=== PATIENT | female | born 1995 | race Caucasian/White ===

== ENCOUNTER 2016-11-01 15:01 | Emergency (ER) | payer OTHER ==
[~2016-11-01] VITALS: Ht 175.3 cm; Wt 132.7 kg
[2016-11-01 15:13] VITALS: TEMP 36.7; Ht 175.3 cm; Wt 132.7 kg
[2016-11-01] MEDS ORDERED: ONDANSETRON INJ 2 MG/ML 2 ML VIAL IV STA (16:03)
[2016-11-01] MEDS ORDERED: OPTIRAY 320 IV PRN (16:15)
[2016-11-01 16:30] LABS: URINE APPEARANCE CLOUDY (CLEAR); URINE BILIRUBIN NEG (NEG); URINE COLOR YELLOW; URINE EPITHELIAL CELL AUTO >30 /lpf (0-5); URINE NITRITE NEG (NEG); URINE SPECIFIC GRAVITY 1.022 (1.000-1.030); UROBILINOGEN NEG (NEG)
[2016-11-01 16:42] LABS: BASO % 0.3 %; BASO ABS # 0.02 K/uL (0-0.2); COMPLETE YES; EOS % 1.4 %; HEMATOCRIT 41.5 % (37-47); IG% 0.1 %; LYMPH % 24.5 %; LYMPH ABS # 1.86 K/uL (1.2-3.4); MEAN CELL VOLUME 86.1 fL (80-100); MEAN CORPUSCULAR HEMOGLOBIN 30.1 pg (25-34); MEAN CORPUSCULAR HGB CONC 34.9 g/dl (32-36); MEAN PLATELET VOLUME 9.3 fL (7.4-10.4); MONO % 5.5 %; NEUT % 68.2 %; PLATELET COUNT 233 K/uL (130-400); RED BLOOD COUNT 4.82 M/uL (4.2-5.4)
[2016-11-01 16:45] LABS: MANUAL MICROSCOPIC REQUIRED? NO; REVIEW REQ? YES
[2016-11-01 17:01] LABS: ALT/SGPT 34 U/L (12-78); BLOOD UREA NITROGEN 9 mg/dl (7-18); BUN/CREATININE RATIO 11.2 (10-20); CALCIUM 8.8 mg/dl (8.5-10.1); CARBON DIOXIDE 25 mmol/L (21-32); CHLORIDE 106 mmol/L (98-107); CREATININE 0.78 mg/dl (0.60-1.20); GLUCOSE 81 mg/dl (70-99); POTASSIUM 3.7 mmol/L (3.5-5.1); SODIUM 142 mmol/L (136-145)
[2016-11-01 17:04] LABS: ALKALINE PHOSPHATASE 78 U/L (45-117); AST/SGOT 18 U/L (15-37)
[2016-11-01] MEDS ORDERED: CETI10TA84 PO (17:08)
[2016-11-01] MEDS ORDERED: BIOT1CAP8 PO (17:08)
[2016-11-01] MEDS ORDERED: FERR324T PO (17:20)
[2016-11-01] MEDS ORDERED: MAGN250T3 PO (17:20)
[2016-11-01] MEDS ORDERED: CYAN100020 PO (17:20)
[2016-11-01] MEDS ORDERED: CHOL100027 PO (17:20)
[2016-11-01] MEDS ORDERED: ASCO1CAP3 PO (17:20)
[2016-11-01] MEDS ORDERED: POTA75TA PO (17:20)
--- NOTE | 2016-11-01 19:07 | DIAGNOSTIC IMAGING REPORT ---
ABDOMEN AND PELVIS CT WITH IV AND ORAL CONTRAST CT DOSE: 1540.06 mGy.cm HISTORY: Right-sided abdominal pain. Assess for appendicitis. TECHNIQUE: Multiaxial CT images of the abdomen and pelvis were performed following the use of intravenous and oral contrast. COMPARISON STUDY: None. FINDINGS: The lung bases are clear. The liver, spleen, gallbladder, pancreas, kidneys, and adrenal glands are within normal limits. No bowel wall thickening or obstruction. The pelvic organs are unremarkable. No suspicious lytic or blastic osseous lesions. Normal appendix. A 1.5 cm right ovarian cyst. This is considered to be within the range of normal limits. A few small sclerotic foci within the sacrum likely represent bone islands. There is a right L4 pars defect. IMPRESSION: 1. Normal appendix. 2. No bowel wall thickening or obstruction. Electronically signed by: Ameya Yi M.D. 11/01/2016 7:05 PM Dictated Date/Time: 11/01/2016 6:57 PM
[2016-11-01 19:39] VITALS: BP 135/73; PULSE 85; O2SAT 100
--- NOTE | 2016-11-01 21:00 | EMERGENCY ROOM VISIT NOTE ---
History Report prepared by Ray: Opal Armas Under the Supervision of: Dr. Hang Lomas M.D. First contact with patient: 15:53 Chief Complaint: ABDOMINAL PAIN Stated Complaint: BLOOD IN STOOL,PAIN ON R SIDE OF STOMACH Nursing Triage Summary: blood in stool since bright red, blood only with bm pt having less vm then normal denies hemmorrhoids History of Present Illness The patient is a 21 year old female who presents to the Emergency Room with complaints of waxing and waning right sided abdominal pain that began 3 days ago. The pain radiates through her lower abdomen. She describes it as dull. She also complains of 2 episodes of loose stool. She states that there was bright red blood in her stool. She does not have pain with defecation. No personal history of hemorrhoids. There is no family history of inflammatory bowel disease. Her father was recently diagnosed with colon cancer. Denies fevers, vomiting, watery diarrhea, urinary symptoms, abnormal vaginal discharge or bleeding, or other complaints. The patient has not been sexually active in about 9 months. Denies recent antibiotic use or foreign travel. She has not been around anyone with diarrhea. Source of History: patient Onset: 3 days ago Position: abdomen (right side) Quality: dull Timing: waxes/wanes Associated Symptoms: No fevers, No urinary symptoms, No vomiting Note: Other symptoms: loose stool containing bright red blood Review of Systems See HPI for pertinent positives & negatives. A total of 10 systems reviewed and were otherwise negative. Past Medical & Surgical Medical Problems: (1) No Known Active Medical Problems Family History Cancer Social History Smoking Status: Never Smoker Housing Status: lives with roommate Occupation Status: [employer] Current/Historical Medications Scheduled Ascorbic Acid (Vitamin C), 500 MG PO 2XWK Biotin (Biotin), 1 MG PO DAILY Cetirizine (Zyrtec), 10 MG PO DAILY Cholecalciferol (Vitamin D 1000 Unit), 1,000 INTER.UNIT PO 2XWK Cyanocobalamin (Vitamin B12), 1 TAB PO 2XWK Ferrous Gluconate (Iron Supplement), 324 MG PO MONTHLY Magnesium (Magnesium 250 mg), 1 TAB PO 2XWK Potassium (Potassium), 1 TAB PO 2XWK Allergies Coded Allergies: No Known Allergies (Unverified , 11/01/16) Physical Exam Vital Signs Date Time Temp Pulse Resp B/P Pulse Ox O2 Delivery O2 Flow Rate FiO2 11/01/16 19:39 85 20 135/73 100 11/01/16 18:17 80 16 162/85 98 Room Air 11/01/16 16:29 80 16 143/74 98 Room Air 11/01/16 15:13 36.7 84 20 155/86 100 Room Air Physical Exam Constitutional: Vital signs reviewed. Eyes: Pupils are equal round reactive to light. Conjunctiva are noninjected. ENT: Pharynx is clear without erythema or exudate. Mucous membranes are moist. Neck supple without meningeal signs. Respiratory: Clear to auscultation bilaterally. Breath sounds are equal bilaterally. Cardiovascular: Regular rate and rhythm. No rubs or gallops. GI: Soft, nondistended, right mid and lower abdominal tenderness without guarding. Bowel sounds are present. Musculoskeletal: No peripheral edema. No CVA tenderness. Integumentary: No cyanosis. Neurological: The patient is awake and alert. No focal deficits. Psychiatric: Normal affect. Medical Decision & Procedures ER Provider Diagnostic Interpretation: Radiology results as stated below per my review and the radiologist's interpretation: ABDOMEN AND PELVIS CT WITH IV AND ORAL CONTRAST CT DOSE: 1540.06 mGy.cm HISTORY: Right-sided abdominal pain. Assess for appendicitis. TECHNIQUE: Multiaxial CT images of the abdomen and pelvis were performed following the use of intravenous and oral contrast. COMPARISON STUDY: None. FINDINGS: The lung bases are clear. The liver, spleen, gallbladder, pancreas, kidneys, and adrenal glands are within normal limits. No bowel wall thickening or obstruction. The pelvic organs are unremarkable. No suspicious lytic or blastic osseous lesions. Normal appendix. A 1.5 cm right ovarian cyst. This is considered to be within the range of normal limits. A few small sclerotic foci within the sacrum likely represent bone islands. There is a right L4 pars defect. IMPRESSION: 1. Normal appendix. 2. No bowel wall thickening or obstruction. Electronically signed by: Ameya Yi M.D. 11/01/2016 7:05 PM Dictated Date/Time: 11/01/2016 6:57 PM Laboratory Results 11/01/16 16:30 Red Blood Count 4.82, Mean Corpuscular Volume 86.1, Mean Corpuscular Hemoglobin 30.1, Mean Corpuscular Hemoglobin Concent 34.9, Mean Platelet Volume 9.3, Neutrophils (%) (Auto) 68.2, Lymphocytes (%) (Auto) 24.5, Monocytes (%) (Auto) 5.5, Eosinophils (%) (Auto) 1.4, Basophils (%) (Auto) 0.3, Neutrophils # (Auto) 5.18, Lymphocytes # (Auto) 1.86, Monocytes # (Auto) 0.42, Eosinophils # (Auto) 0.11, Basophils # (Auto) 0.02 11/01/16 16:30 Test 11/01/16 16:15 11/01/16 16:30 Urine Color YELLOW Urine Appearance CLOUDY (CLEAR) Urine pH 7.0 (4.5-7.5) Urine Specific [place] 1.022 (1.000-1.030) Urine Protein NEG (NEG) Urine Glucose (UA) NEG (NEG) Urine Ketones NEG (NEG) Urine Occult Blood NEG (NEG) Urine Nitrite NEG (NEG) Urine Bilirubin NEG (NEG) Urine Urobilinogen NEG (NEG) Urine Leukocyte Esterase TRACE (NEG) Urine WBC (Auto) 5-10 /hpf (0-5) Urine RBC (Auto) 0-4 /hpf (0-4) Urine Hyaline Casts (Auto) 0 /lpf (0-5) Urine Epithelial Cells (Auto) >30 /lpf (0-5) Urine Bacteria (Auto) 3+ (NEG) Urine Renal Epithelial Cells /lpf (0-5) Urine Yeast (Auto) (NONE PRSENT) Urine Test NEG (NEG) White Blood Count 7.60 K/uL (4.8-10.8) Red Blood Count 4.82 M/uL (4.2-5.4) Hemoglobin 14.5 g/dL (12.0-16.0) Hematocrit 41.5 % (37-47) Mean Corpuscular Volume 86.1 fL (80-100) Mean Corpuscular Hemoglobin 30.1 pg (25-34) Mean Corpuscular Hemoglobin Concent 34.9 g/dl (32-36) Platelet Count 233 K/uL (130-400) Mean Platelet Volume 9.3 fL (7.4-10.4) Neutrophils (%) (Auto) 68.2 % Lymphocytes (%) (Auto) 24.5 % Monocytes (%) (Auto) 5.5 % Eosinophils (%) (Auto) 1.4 % Basophils (%) (Auto) 0.3 % Neutrophils # (Auto) 5.18 K/uL (1.4-6.5) Lymphocytes # (Auto) 1.86 K/uL (1.2-3.4) Monocytes # (Auto) 0.42 K/uL (0.11-0.59) Eosinophils # (Auto) 0.11 K/uL (0-0.5) Basophils # (Auto) 0.02 K/uL (0-0.2) RDW Standard Deviation 40.4 fL (36.4-46.3) RDW Coefficient of Variation 12.9 % (11.5-14.5) Immature Granulocyte % (Auto) 0.1 % Immature Granulocyte # (Auto) 0.01 K/uL (0.00-0.02) Anion Gap 11.0 mmol/L (3-11) Est Creatinine Clear Calc Drug Dose 168.6 ml/min Estimated GFR () 126.8 Estimated GFR (Non- 109.4 BUN/Creatinine Ratio 11.2 (10-20) Calcium Level 8.8 mg/dl (8.5-10.1) Total Bilirubin 0.5 mg/dl (0.2-1) Direct Bilirubin < 0.1 mg/dl (0-0.2) Aspartate Amino Transf (AST/SGOT) 18 U/L (15-37) Alanine Aminotransferase (ALT/SGPT) 34 U/L (12-78) Alkaline Phosphatase 78 U/L (45-117) Total Protein 8.2 gm/dl (6.4-8.2) Albumin 4.1 gm/dl (3.4-5.0) Lipase 96 U/L (73-393) Laboratory results as reviewed by me. Medications Administered Medications (Trade) Dose Ordered Sig/Nara Route Start Time Stop Time Status Last Admin Dose Admin Ondansetron HCl (Zofran Inj) 4 mg NOW STAT IV 11/01/16 16:03 11/01/16 16:04 DC 11/01/16 16:28 4 MG ED Course 1556: The patient was evaluated in room B9. A complete history and physical exam was performed. 1603: Ordered Zofran Inj 4 mg IV. 1813: I reassessed the patient. She was feeling better. We are waiting on the CT. 1915: I reassessed the patient and updated her on her test results. She will be discharged home. 1917: I spoke with the patients mother over the phone per patient's request. Medical Decision This is a 21-year-old female who presents with right-sided abdominal pain and rectal bleeding. Differential diagnosis includes ileitis, Crohn's disease, colitis, mass, appendicitis, anemia. I did perform a limited focused review of portions of the patient's old chart on the electronic medical record. The patient has had no prior visits to this hospital. I did evaluate the patient as noted above. IV access was established. I did treat the patient with Zofran IV. I did order and personally review the patient 's urinalysis as described above. I did order and review the patient's blood work as noted in the electronic medical record. She is not anemic. Her white blood cell count is not elevated. I did order a CT of the abdomen and pelvis. I did review the images myself as well as the radiology report as described above. There is no evidence of appendicitis, colitis or ileitis. No mass is appreciated although I did explain to the patient that CT scan is not the ideal test for looking for a colon mass. I did discuss the test results with the patient. I also discussed the results with her parents per her request. I did recommend close follow with her primary doctor or [facility] as well as follow up with gastroenterology for colonoscopy. I did discuss return instructions with the patient. She was discharged in good condition. Impression Primary Impression: Right lower quadrant pain Additional Impressions: Rectal bleeding Right ovarian cyst Scribe Attestation The scribe's documentation has been prepared under my direct and personally reviewed by me in its entirety. I confirm that the note above accurately reflects all work, treatment, procedures, and medical decision making performed by me. Departure Information Dispostion Home / Self-Care Referrals Kirk Swanson, DO [facility] Forms HOME CARE DOCUMENTATION FORM, IMPORTANT VISIT INFORMATION Patient Instructions Bleeding Rectal, ED Abd Pain Unkn Cause Fem, ED Cyst Ovarian, My [facility] Additional Instructions You have been examined and treated today on an emergency basis only. This is not a substitute for, or an effort to provide, complete comprehensive medical care. It is impossible to recognize and treat all injuries or illnesses in a single emergency department visit. It is therefore important that you follow up closely with your physician, [facility], and Dr Swanson of gastroenterology. Call as soon as possible for an appointment. Return for worsening symptoms or if you develop fever, vomiting, lightheadedness or any other concerning symptoms. Problem Qualifiers
== END 2016-11-01 19:41 | disposition home or self-care (01) ==
LOC: C.EDB 15:04
DX: N83.201 Unspecified ovarian cyst, right side (principal); K62.5 Hemorrhage of anus and rectum; Z79.899 Other long term (current) drug therapy; Z80.9 Family history of malignant neoplasm, unspecified